=== PATIENT | female | born 1995 | race Caucasian/White ===

== ENCOUNTER 2018-08-16 13:41 | Inpatient (IN) | payer MEDICAID ==
[2018-08-16] MEDS ORDERED: LIDOCAINE 1% (MPF) 30 ML INJ INJ (15:00)
[2018-08-16] MEDS ORDERED: IBUPROFEN 600 MG TAB PO (15:00)
[2018-08-16] MEDS ORDERED: MISOPROSTOL 200 MCG TAB PR (15:00)
[2018-08-16] MEDS ORDERED: METHYLERGONOVINE 0.2 MG INJ IM (15:00)
[2018-08-16] MEDS ORDERED: CARBOPROST 250 MCG INJ IM (15:00)
[2018-08-16] MEDS ORDERED: BUTORPHANOL 2 MG INJ IV (15:00)
[2018-08-16] MEDS ORDERED: OXYTOCIN 30 UNITS/LR 500 ML IV ×2 (15:00)
[2018-08-16] MEDS: LACTATED RINGER'S 1,000 ML IV ×2 (17:11→21:49)
[2018-08-16 17:30] LABS: ADD MAN DIFF? NO
[2018-08-16] MEDS ORDERED: BUTORPHANOL 1 MG INJ IV (17:30)
[2018-08-16 17:32] LABS: BASOPHILS % 0.2 % (0.0-2.0); EOSINOPHILS # 0.2 10^3/ul (0.0-0.5); EOSINOPHILS % 1.6 % (0.0-7.0); HEMOGLOBIN 10.6 g/dl (12.0-16.0); LYMPHOCYTES # 2.6 10^3/ul (0.8-2.9); LYMPHOCYTES % 20.6 % (18.0-55.0); MEAN CORPUSCULAR HEMOGLOBIN 28.6 pg (29.0-33.0); MEAN CORPUSCULAR HGB CONC 33.1 g/dl (32.0-37.0); MEAN CORPUSCULAR VOLUME 86.5 fl (72.0-104.0); MEAN PLATELET VOLUME 11.6 fl (7.4-10.4); MONOCYTE # 0.8 10^3/ul (0.3-0.9); MONOCYTES % 6.5 % (0.0-13.0); NEUTROPHILS % 69.9 % (30.0-74.0); PLATELET COUNT 225 10^3/UL (140-415); RED CELL DISTRIBUTION WIDTH 14.4 % (11.5-14.5)
[2018-08-16 17:32] LABS: WHITE BLOOD COUNT 12.8 10^3/ul (4.8-10.8)
[2018-08-16 17:48] LABS: INR 0.92; PARTIAL THROMBOPLASTIN TIME 24.9 Sec (23.0-35.0); PROTIME 12.5 Sec (11.9-14.9)
[2018-08-16 18:24] LABS: HEPATITIS B SURFACE ANTIGEN NEGATIVE (NEGATIVE)
[2018-08-16 18:54] LABS: ALANINE AMINOTRANSFERASE 14 IU/L (13-69); ALBUMIN 3.4 g/dl (3.3-4.9); ALKALINE PHOSPHATASE 172 IU/L (42-121); ANION GAP 11 (5-13); ASPARTATE AMINO TRANSFERASE 25 IU/L (15-46); BILIRUBIN,INDIRECT 0.4 mg/dl (0-1.1); BILIRUBIN,TOTAL 0.4 mg/dl (0.2-1.3); BLOOD UREA NITROGEN 8 mg/dl (7-20); CALCIUM 9.6 mg/dl (8.4-10.2); CARBON DIOXIDE 16 mmol/L (21-31); CHLORIDE 111 mmol/L (97-110); CREATININE 0.49 mg/dl (0.44-1.00); Estimated GFR > 60 mL/min (>60); GLUCOSE 66 mg/dl (70-220); SODIUM 138 mmol/L (135-144); TOTAL PROTEIN 6.8 g/dl (6.1-8.1); URIC ACID 4.4 mg/dl (3.1-7.9)
[2018-08-16] MEDS: ACETAMINOPHEN 325 MG TAB PO (18:56)
[2018-08-16] MEDS: OXYTOCIN 30 UNITS/LR 500 ML IV (19:53)
[2018-08-16 22:18] LABS: RAPID PLASMA REAGIN NONREACTIVE (NR)
[2018-08-17] MEDS: LACTATED RINGER'S 1,000 ML IV ×3 (06:00→19:50)
[2018-08-17] MEDS: MISOPROSTOL 50 MCG CAPSULE PO ×4 (11:10→23:00)
[2018-08-17 16:56] LABS: ADD UMIC YES; UR ASCORBIC ACID NEGATIVE (NEGATIVE); UR BILIRUBIN (Dip) NEGATIVE (NEGATIVE); UR BLOOD (Dip) NEGATIVE (NEGATIVE); UR CALCIUM OXALATE CRYSTAL MANY /HPF (NONE SEEN); UR CLARITY CLOUDY (CLEAR); UR COLOR YELLOW (YELLOW); UR GLUCOSE (Dip) NEGATIVE (NEGATIVE); UR KETONES (Dip) NEGATIVE (NEGATIVE); UR LEUKOCYTE ESTERASE (Dip) NEGATIVE Leu/ul (NEGATIVE); UR MUCUS FEW /HPF (NONE SEEN); UR NITRITE (Dip) NEGATIVE (NEGATIVE); UR RBC 6 /HPF (0-5); UR SPECIFIC GRAVITY (Dip) 1.017 (1.003-1.030); UR SQUAMOUS EPITHELIAL CELL FEW /HPF (FEW); UR TOTAL PROTEIN (Dip) NEGATIVE (NEGATIVE); UR UROBILINOGEN (Dip) NEGATIVE (NEGATIVE); UR WBC 9 /HPF (0-5)
[2018-08-17] MEDS: BUTORPHANOL 2 MG INJ IV (17:09)
[2018-08-17] MEDS ORDERED: DIPHENHYDRAMINE 50 MG INJ IV (20:00)
[2018-08-17] MEDS ORDERED: NALOXONE (0.4 MG/ML) INJ IV (20:00)
[2018-08-17] MEDS ORDERED: ROPIVACAINE 0.2% 100 ML (20:03)
[2018-08-17] MEDS: ACETAMINOPHEN 1000MG/100ML IV 100 ML IVPB (22:07)
[2018-08-17] MEDS: ONDANSETRON 4 MG INJ IV (22:13)
[2018-08-17] MEDS: OXYTOCIN 30 UNITS/LR 500 ML IV (22:17)
[2018-08-17 22:54] LABS: ADD MAN DIFF? NO
[2018-08-17 22:57] LABS: BASOPHILS % 0.2 % (0.0-2.0); EOSINOPHILS # 0.1 10^3/ul (0.0-0.5); EOSINOPHILS % 0.6 % (0.0-7.0); HEMATOCRIT 31.3 % (37.0-47.0); HEMOGLOBIN 10.3 g/dl (12.0-16.0); LYMPHOCYTES # 1.8 10^3/ul (0.8-2.9); LYMPHOCYTES % 13.1 % (18.0-55.0); MEAN CORPUSCULAR HEMOGLOBIN 29.2 pg (29.0-33.0); MEAN CORPUSCULAR HGB CONC 32.9 g/dl (32.0-37.0); MEAN CORPUSCULAR VOLUME 88.7 fl (72.0-104.0); MEAN PLATELET VOLUME 11.5 fl (7.4-10.4); MONOCYTE # 0.7 10^3/ul (0.3-0.9); MONOCYTES % 5.2 % (0.0-13.0); NEUTROPHIL # 11.1 10^3/ul (1.6-7.5); NEUTROPHILS % 79.9 % (30.0-74.0); PLATELET COUNT 204 10^3/UL (140-415); RED BLOOD COUNT 3.53 10^6/ul (4.20-5.40); RED CELL DISTRIBUTION WIDTH 14.5 % (11.5-14.5)
[2018-08-17 22:57] LABS: WHITE BLOOD COUNT 13.9 10^3/ul (4.8-10.8)
[2018-08-17 23:15] LABS: ALANINE AMINOTRANSFERASE 10 IU/L (13-69); ALBUMIN 3.2 g/dl (3.3-4.9); ALKALINE PHOSPHATASE 156 IU/L (42-121); ANION GAP 13 (5-13); ASPARTATE AMINO TRANSFERASE 19 IU/L (15-46); BILIRUBIN,INDIRECT 0.6 mg/dl (0-1.1); BILIRUBIN,TOTAL 0.6 mg/dl (0.2-1.3); BLOOD UREA NITROGEN 8 mg/dl (7-20); CALCIUM 9.1 mg/dl (8.4-10.2); CARBON DIOXIDE 19 mmol/L (21-31); CHLORIDE 107 mmol/L (97-110); CREATININE 0.58 mg/dl (0.44-1.00); Estimated GFR > 60 mL/min (>60); GLUCOSE 78 mg/dl (70-220); POTASSIUM 3.8 mmol/L (3.5-5.1); SODIUM 139 mmol/L (135-144); TOTAL PROTEIN 6.4 g/dl (6.1-8.1); URIC ACID 4.7 mg/dl (3.1-7.9)
[2018-08-18] MEDS: MISOPROSTOL 50 MCG CAPSULE PO (03:00)
[2018-08-18] MEDS: FENTAnyl 2MCG/ML-ROPIV 0.2% 100 ML BAG EPI ×3 (03:19→14:19)
[2018-08-18] MEDS: LACTATED RINGER'S 1,000 ML IV (03:28)
[2018-08-18] MEDS: ONDANSETRON 4 MG INJ IV (10:21)
[2018-08-18] MEDS ORDERED: LIDOCAINE 1% (MPF) 30 ML INJ (15:10)
[2018-08-18] MEDS: LIDOCAINE 1% (MPF) 30 ML INJ INJ (17:39)
[2018-08-18] MEDS: OXYTOCIN 30 UNITS/LR 500 ML IV ×3 (17:40→21:43)
[2018-08-18] MEDS ORDERED: METHYLERGONOVINE 0.2 MG INJ IM (19:00)
[2018-08-18] MEDS ORDERED: SENNA/DOCUSATE NA (8.6MG/50MG) TAB PO (19:00)
[2018-08-18] MEDS ORDERED: MISOPROSTOL 200 MCG TAB PR (19:00)
[2018-08-18] MEDS ORDERED: MAGNESIUM HYDROXIDE 30ML CUP PO (19:00)
[2018-08-18] MEDS ORDERED: ZOLPIDEM 5 MG TAB PO (19:00)
[2018-08-18] MEDS ORDERED: DIPHENHYDRAMINE 25 MG CAP PO (19:00)
[2018-08-18] MEDS ORDERED: CARBOPROST 250 MCG INJ IM (19:00)
[2018-08-18] MEDS ORDERED: OXYTOCIN 30 UNITS/LR 500 ML IV (19:00)
[2018-08-18] MEDS: LACTATED RINGER'S 1,000 ML IV* (21:00)
[2018-08-18] MEDS: BENZOCAINE 20% 56 ML SPRAY TOP (21:40)
[2018-08-18] MEDS: LANOLIN HPA 1 PKT TOP (21:41)
[2018-08-18] MEDS: WITCH HAZEL/GLYCERIN PAD PR (21:41)
[2018-08-19] MEDS: IBUPROFEN 800 MG TAB PO ×5 (00:26→23:58)
[2018-08-19] MEDS: ACETAMINOPHEN 325 MG TAB PO (04:15)
[2018-08-19] MEDS: LACTATED RINGER'S 1,000 ML IV* ×2 (04:46→06:51)
[2018-08-19 08:24] LABS: ADD MAN DIFF? NO
[2018-08-19 08:32] LABS: BASOPHILS % 0.2 % (0.0-2.0); EOSINOPHILS # 0.2 10^3/ul (0.0-0.5); EOSINOPHILS % 1.2 % (0.0-7.0); HEMATOCRIT 30.5 % (37.0-47.0); LYMPHOCYTES % 18.1 % (18.0-55.0); MEAN CORPUSCULAR HEMOGLOBIN 28.7 pg (29.0-33.0); MEAN CORPUSCULAR HGB CONC 32.8 g/dl (32.0-37.0); MEAN CORPUSCULAR VOLUME 87.6 fl (72.0-104.0); MEAN PLATELET VOLUME 11.9 fl (7.4-10.4); MONOCYTE # 1.2 10^3/ul (0.3-0.9); MONOCYTES % 7.5 % (0.0-13.0); NEUTROPHIL # 11.9 10^3/ul (1.6-7.5); NUCLEATED RED BLOOD CELLS% 0.1 /100WBC (0.0-0.0); PLATELET COUNT 211 10^3/UL (140-415); RED BLOOD COUNT 3.48 10^6/ul (4.20-5.40); RED CELL DISTRIBUTION WIDTH 14.5 % (11.5-14.5)
[2018-08-19 08:32] LABS: WHITE BLOOD COUNT 16.5 10^3/ul (4.8-10.8)
[2018-08-19] MEDS: HYDROCODONE/APAP (5/325) TAB PO (10:37)
[2018-08-20] MEDS: ACETAMINOPHEN 325 MG TAB PO ×2 (02:49→16:46)
[2018-08-20] MEDS: IBUPROFEN 800 MG TAB PO ×2 (06:00→11:03)
[2018-08-20] MEDS: HYDROCODONE/APAP (5/325) TAB PO (06:30)
[2018-08-20] MEDS: LANOLIN HPA 1 PKT TOP (06:35)
[2018-08-20] MEDS: VARICELLA VACCINE LIVE/PF 1,350 UNIT/0.5 ML ML SC* (09:00)
[2018-08-20] MEDS: MEASLES,MUMPS,RUBELLA VACCINE INJ SC* (09:00)
[2018-08-20] MEDS: DIPHTH/TET/ACEL PERTUSS (ADULT) 0.5 ML VIAL IM* (09:00)
== END 2018-08-20 18:00 | disposition home or self-care (01) | DRG 807 ==
LOC: L-D 13:41 → PP1 08-18 18:39
PROVIDERS: Obstetrics & Gynecology
PROC: 10E0XZZ Delivery of Products of Conception, External Approach (ICD-10-PCS; principal; 2018-08-18)
DX: O26.893 Other specified pregnancy related conditions, third trimester (principal); Z37.0 Single live birth; R51 Headache; O16.4 Unspecified maternal hypertension, complicating childbirth; O99.214 Obesity complicating childbirth; E66.9 Obesity, unspecified; Z3A.39 39 weeks gestation of pregnancy
CPT/HCPCS: 62319; 76815; 80053; 81001; 84560; 85025; 85384; 85610; 85730; 86592; 86850; 86900; 86901; 87340; 90716

== ENCOUNTER 2018-08-21 11:29 | Emergency (ER) | payer SELFPAY, MEDICAID | END 2018-08-21 16:40 | disposition home or self-care (01) | LOC: E/R 16:40 → FTE 11:29 → E/R 16:40 | DX: O89.4 Spinal and epidural anesthesia-induced headache during the puerperium (principal); R40.2142 Coma scale, eyes open, spontaneous, at arrival to emergency department; R40.2252 Coma scale, best verbal response, oriented, at arrival to emergency department; R40.2362 Coma scale, best motor response, obeys commands, at arrival to emergency department | CPT/HCPCS: 62273; 99283-25 ==